=== PATIENT | female | born 1975 ===

== ENCOUNTER 2017-05-24 12:34 | Emergency (ER) | payer OTHER ==
[2017-05-24 12:50] VITALS: TEMP 98.2
[2017-05-24] MEDS ORDERED: Sodium Chloride 0.9% 1,000 ML IV ONE (14:11)
--- NOTE | 2017-05-24 14:44 | C.PDOC ---
History Of Present Illness 42 y/o female presents to ED with complaints of epigastric abdominal pain and pain to right leg for 1 week. Patient reports loose non-bloody stools for 3 days. Denies vomiting, fever, numbness, injury to leg or weakness. Time Seen by Provider: 05/24/17 14:08 Chief Complaint (Nursing): Abdominal Pain History Per: Patient History/Exam Limitations: no limitations Onset/Duration Of Symptoms: Days Current Symptoms Are (Timing): Still Present Location Of Pain/Discomfort: Epigastric Past Medical History Reviewed: Historical Data, Nursing Documentation, Vital Signs Vital Signs: Last Vital Signs Temp 98.2 F 05/24/17 12:47 Pulse 78 05/24/17 16:42 Resp 20 05/24/17 16:42 BP 130/72 05/24/17 16:42 Pulse Ox 98 05/24/17 16:42 - Medical History PMH: No Chronic Diseases Surgical History: Cholecystectomy Family History: States: No Known Family Hx - Social History Hx Alcohol Use: No Hx Substance Use: No - Immunization History Hx Tetanus Toxoid Vaccination: No Hx Influenza Vaccination: Yes Hx Pneumococcal Vaccination: No Review Of Systems Constitutional: Negative for: Fever, Chills Gastrointestinal: Positive for: Abdominal Pain. Negative for: Nausea, Vomiting Musculoskeletal: Positive for: Leg Pain Skin: Negative for: Rash Neurological: Negative for: Weakness, Numbness Physical Exam - Physical Exam Appears: Well, Non-toxic, No Acute Distress Skin: Warm, Dry, No Rash Head: Atraumatic, Normacephalic Eye(s): bilateral: Normal Inspection, EOMI Nose: Normal Oral Mucosa: Moist Neck: Normal ROM, Supple Chest: Symmetrical Cardiovascular: Rhythm Regular, No Murmur Respiratory: Normal Breath Sounds, No Rales, No Rhonchi, No Wheezing Gastrointestinal/Abdominal: Bowel Sounds (active), Soft, Tenderness (Epigastric mildly tender with deep palpation), No Mass, No Distention, No Guarding, No Rebound, No Ascites Back: Normal Inspection, No CVA Tenderness Extremity: Right: Other (mild tenderness to right thigh, no erythema, swelling or masses), Bilateral: Atraumatic, Normal Color And Temperature, Normal ROM Neurological/Psych: Oriented x3, Normal Speech ED Course And Treatment - Laboratory Results Result Diagrams: 05/24/17 14:45 05/24/17 14:45 O2 Sat by Pulse Oximetry: 97 (RA) Pulse Ox Interpretation: Normal Medical Decision Making Medical Decision Making: Impression: abdominal pain, epigastric Plan: Blood work, UA ordered. Pepcid and Toradol administered Progress: All labs reviewed. Potassium low, oral dose given Patient reevaluated and was seated comfortably in ED chair. She reports feeling better. Patient has no fever and vital signs are stable. Abdomen remains soft without tenderness or guarding. She is ambulatory without signs of discomfort. No signs of injury to leg or clinical indication for xray. Patient feels comfortable going home and will be discharged. Patient given follow up instructions. Instructed to return to ER if symptoms worsen or new symptoms arise. Disposition Counseled Patient/Family Regarding: Diagnosis, Need For Followup, Rx Given - Disposition Referrals: [facility] [Outside] [facility] [Outside] Disposition: HOME/ ROUTINE Disposition Time: 16:26 Condition: STABLE Additional Instructions: Elizabeth un seguimiento con phillips mdico primario o clnica en 2-5 castellanos para clinton evaluacin adicional. [place] los medicamentos segn lo recetado. Regrese al departamento de emergencia en cualquier momento si los sntomas persisten o empeoran. Follow up with your primary medical doctor or clinic in 2-5 days for further evaluation. Take medications as prescribed. Return to the emergency department at any time if symptoms persist or worsen. Prescriptions: Pantoprazole Sodium [Protonix] 20 mg PO DAILY #20 ect Instructions: Diarrhea in Adolescents and Adults, High Potassium Diet Forms: [employer] (Citizen Of [place]) Print Language: NEPALI - POA Present On Arrival: None - Clinical Impression Clinical Impression: Hypokalemia, Diarrhea - PA / EARTH SCIENCE PROFESSOR / Resident Statement MD/DO has reviewed & agrees with the documentation as recorded. - Scribe Statement The provider has reviewed the documentation as recorded by the Harmeet Alston All medical record entries made by the Harmeet were at my direction and personally dictated by me. I have reviewed the chart and agree that the record accurately reflects my personal performance of the history, physical exam, medical decision making, and the department course for this patient. I have also personally directed, reviewed, and agree with the discharge instructions and disposition.
[2017-05-24 14:52] LABS: EOS # 0.1 K/uL (0.0-0.7); HEMOGLOBIN 14.4 g/dL (11.0-16.0); MONO # 0.5 K/uL (0.0-0.8)
[2017-05-24 14:56] LABS: BASO % 0.6 % (0.0-2.0); LYMPH # 1.5 K/uL (1.0-4.3); LYMPH % 23.2 % (20.0-40.0); MEAN CORPUSCULAR HEMOGLOBIN 30.7 pg (27.0-31.0); MEAN CORPUSCULAR HGB CONC 34.1 g/dL (33.0-37.0); MEAN PLATELET VOLUME 11.5 fL (7.2-11.7); MONO % 8.2 % (0.0-10.0); NEUT # 4.2 K/uL (1.8-7.0); RBC 4.7 Mil/uL (3.80-5.20); RED CELL DISTRIBUTION WIDTH 14.6 % (11.5-14.5); WHITE BLOOD COUNT 6.3 K/uL (4.8-10.8)
[2017-05-24] MEDS ORDERED: Sodium Chloride 0.9% 1,000 ML ONE (14:57)
[2017-05-24 15:04] LABS: ALB/GLOB RATIO 1.1 (1.0-2.1); ALT/SGPT 27 U/L (9-52); AST/SGOT 30 U/L (14-36); BLOOD UREA NITROGEN 16 mg/dL (7-17); CALCIUM 9.5 mg/dl (8.6-10.4); GFR AFRICAN-AMERICAN > 60; GFR NON-AFRICAN AMERICAN > 60; LIPASE 184 U/L (23-300)
[2017-05-24] MEDS ORDERED: Potassium Chloride 20 mEq ER Tab PO STA (15:22)
[2017-05-24 15:59] LABS: HCG,QUALITATIVE URINE NEGATIVE (NEGATIVE)
[2017-05-24 16:04] LABS: SQUAMOUS EPITHIAL 4 /hpf (0-5); URINE BACTERIA RARE (<OCC); URINE BILIRUBIN NEGATIVE (NEGATIVE); URINE BLOOD 3+ (NEGATIVE); URINE CALCIUM OXALATE CRYSTALS MANY /hpf (<OCC); URINE CLARITY Hazy (Clear); URINE COLOR Amber (YELLOW); URINE GLUCOSE (UA) NORMAL (Normal); URINE LEUKOCYTE ESTERASE NEG Leu/uL (Negative); URINE NITRATE NEGATIVE (NEGATIVE); URINE PROTEIN 1+ mg/dL (NEGATIVE); URINE UROBILINOGEN NORMAL mg/dL (0.2-1.0)
[2017-05-24] MEDS ORDERED: Potassium Chloride 20 mEq ER Tab PO ONE (16:13)
[2017-05-24 16:43] VITALS: BP 130/72; PULSE 78; RESP 20
[2017-05-24 17:06] VITALS: O2SAT 97
== END 2017-05-24 17:09 | disposition home or self-care (01) ==
LOC: C.ER 12:34
DX: E87.6 Hypokalemia (principal); R19.7 Diarrhea, unspecified
CPT/HCPCS: 80053; 81001; 83690; 84703; 85025; 96374; 96375; 99284; J1885; J7040

== ENCOUNTER 2017-12-31 11:34 | Inpatient (IN) | payer OTHER ==
[2017-12-31] MEDS ORDERED: Sodium Chloride 0.9% 1,000 ML IV ONE ×2 (12:32→16:09)
--- NOTE | 2017-12-31 12:34 | C.PDOC ---
History Of Present Illness 42 y/o female, with no significant PMHx, presents to ED for evaluation of gradual development of epigastric abdominal pain since last night. Pt reports multiple episodes of non-bloody, non-bilious vomiting. Denies recent travel, diarrhea, constipation, back pain, urinary symptoms, cough, shortness of breath, chest pain, fever, or chills. Time Seen by Provider: 12/31/17 12:10 Chief Complaint (Nursing): Abdominal Pain History Per: Patient History/Exam Limitations: no limitations Onset/Duration Of Symptoms: Days Current Symptoms Are (Timing): Still Present Location Of Pain/Discomfort: Epigastric Radiation Of Pain To:: None Quality Of Discomfort: "Pain" Associated Symptoms: Nausea, Vomiting. denies: Diarrhea, Loss Of Appetite, Back Pain, Chest Pain, Constipation, Urinary Symptoms Exacerbating Factors: None Alleviating Factors: None Recent travel outside of the [place]: No Additional History Per: Patient Abnormal Vaginal Bleeding: No Past Medical History Reviewed: Historical Data, Nursing Documentation, Vital Signs Vital Signs: Last Vital Signs Temp 98.2 F 12/31/17 11:44 Pulse 62 12/31/17 11:44 Resp 16 12/31/17 11:44 BP 124/81 12/31/17 11:44 Pulse Ox 98 12/31/17 11:44 Surgical History: Cholecystectomy Family History: States: Unknown Family Hx - Social History Hx Alcohol Use: No Hx Substance Use: No - Immunization History Hx Tetanus Toxoid Vaccination: No Hx Influenza Vaccination: Yes Hx Pneumococcal Vaccination: No Review Of Systems Except As Marked, All Systems Reviewed And Found Negative. Constitutional: Negative for: Fever, Chills Cardiovascular: Negative for: Chest Pain, Palpitations Respiratory: Negative for: Cough, Shortness of Breath Gastrointestinal: Positive for: Nausea, Vomiting, Abdominal Pain. Negative for: Diarrhea, Constipation, Hematemesis Genitourinary: Negative for: Dysuria, Frequency, Hematuria Musculoskeletal: Negative for: Neck Pain, Back Pain Neurological: Negative for: Headache, Dizziness Physical Exam - Physical Exam Appears: Well, Non-toxic, Other (in pain) Skin: Normal Color, Warm, Dry Eye(s): bilateral: PERRL Nose: No Flaring, No Discharge Oral Mucosa: Moist, No Drooling Throat: No Erythema, No Drooling Neck: Trachea Midline, Supple Cardiovascular: Rhythm Regular Respiratory: No Decreased Breath Sounds, No Accessory Muscle Use, No Stridor, No Wheezing Gastrointestinal/Abdominal: Soft, Tenderness (mod epigastric and mild RLQ tenderness), No Distention, No Guarding Back: No CVA Tenderness Extremity: Normal ROM, No Pedal Edema, No Deformity, No Swelling Neurological/Psych: Oriented x3, Normal Speech ED Course And Treatment - Laboratory Results Result Diagrams: 12/31/17 13:34 12/31/17 13:34 Lab Interpretation: Abnormal O2 Sat by Pulse Oximetry: 98 Pulse Ox Interpretation: Normal - CT Scan/US CT abd/pelvis Other Rad Studies (CT/US): Radiology Report Reviewed CT/US Interpretation: IMPRESSION: Findings consistent with mild early acute appendicitis. Suspect left ovarian cyst. Mild fatty hepatic infiltration. Cholecystectomy. Progress Note: Blood work, Urinalysis ordered and reviewed. Pt was given Pepcid, Zofran, Protonix, and IV fluids. Pt remained stable during the ED evaluation. After CT A/P results discussed with , rad, acute appendincitis identified. Blood Cx, Zosyn ordered. residential program coordinator consult called. case discussed with Surgery on-call and admission arranged. Disposition - Disposition Disposition: HOSPITALIZED Disposition Time: 14:46 Condition: STABLE - Clinical Impression Clinical Impression: Acute appendicitis - PA / STEEL SPAR OPERATOR / Resident Statement MD/DO has reviewed & agrees with the documentation as recorded. - Scribe Statement The provider has reviewed the documentation as recorded by the Scribe KP All medical record entries made by the Scribe were at my direction and personally dictated by me. I have reviewed the chart and agree that the record accurately reflects my personal performance of the history, physical exam, medical decision making, and the department course for this patient. I have also personally directed, reviewed, and agree with the discharge instructions and disposition.
[2017-12-31] MEDS ORDERED: Sodium Chloride 0.9% 1,000 ML ONE ×2 (13:09→16:37)
[2017-12-31 13:45] LABS: BASO % 0.2 % (0.0-2.0); LYMPH # 0.7 K/uL (1.0-4.3); LYMPH % 4.5 % (20.0-40.0); MEAN CELL VOLUME 90.7 fL (81.0-99.0); MEAN CORPUSCULAR HEMOGLOBIN 30.1 pg (27.0-31.0); MEAN CORPUSCULAR HGB CONC 33.2 g/dL (33.0-37.0); MEAN PLATELET VOLUME 11.8 fL (7.2-11.7); MONO # 0.2 K/uL (0.0-0.8); MONO % 1.4 % (0.0-10.0); NEUT # 14.8 K/uL (1.8-7.0); NEUT % 93.9 % (50.0-75.0); PLATELET COUNT 145 K/uL (130-400); RBC 4.32 Mil/uL (3.80-5.20); WHITE BLOOD COUNT 15.7 K/uL (4.8-10.8)
[2017-12-31 13:51] LABS: HCG,QUALITATIVE URINE NEGATIVE (NEGATIVE)
[2017-12-31 14:01] LABS: ALB/GLOB RATIO 1.3 (1.0-2.1); ALBUMIN 4.3 g/dL (3.5-5.0); ALT/SGPT 24 U/L (9-52); AST/SGOT 18 U/L (14-36); BLOOD UREA NITROGEN 12 mg/dL (7-17); GFR NON-AFRICAN AMERICAN > 60; LIPASE 81 U/L (23-300)
[2017-12-31 14:02] LABS: SQUAMOUS EPITHIAL 11 /hpf (0-5); URINE AMORPHOUS SEDIMENT FEW /ul (<OCC); URINE BACTERIA OCC (<OCC); URINE BILIRUBIN NEGATIVE (NEGATIVE); URINE BLOOD NEGATIVE (NEGATIVE); URINE CLARITY Hazy (Clear); URINE COLOR Yellow (YELLOW); URINE GLUCOSE (UA) NORMAL (Normal); URINE LEUKOCYTE ESTERASE NEG Leu/uL (Negative); URINE PROTEIN NEGATIVE (NEGATIVE); URINE UROBILINOGEN NORMAL mg/dL (0.2-1.0)
[2017-12-31 14:11] LABS: BASOPHIL 1 % (0-2); LYMPHOCYTE 5 % (20-40); MONOCYTE 1 % (0-10); NEUTROPHIL 93 % (50-75); PLATELET ESTIMATE NORMAL (NORMAL); TOTAL CELLS COUNTED 100
[2017-12-31] MEDS ORDERED: Iodixanol 320 MG/ML 100 ML BOTTLE IV ONE (14:14)
--- NOTE | 2017-12-31 16:04 | CT ---
Date of service: 2017-12-31 14:25:20 PROCEDURE: CT abdomen pelvis HISTORY: Abdominal pain COMPARISON: None. TECHNIQUE: Contiguous axial images of the abdomen and pelvis performed following intravenous injection of approximately 100 cc Visipaque 320 contrast material.. Coronal and Sagittal reformats generated. Radiation dose: Total exam DLP = mGy-cm. This CT exam was performed using one or more of the following dose reduction techniques: Automated exposure control, adjustment of the mA and/or kV according to patient size, and/or use of iterative reconstruction technique. Total exam DLP = 366.39 mGy-cm. FINDINGS: LOWER THORAX: Heart size within range of normal. No significant pericardial effusion. Mild passive/dependent type atelectasis however lung bases are otherwise clear. LIVER: Liver exhibits relatively normal size. Mild diffuse fatty hepatic infiltration. No obvious hepatic mass collection or calcification.. There is dilatation of the common bile duct however no significant intrahepatic biliary ductal dilatation. GALLBLADDER AND BILE DUCTS: Gallbladder has been resected with mild dilatation of the common bile duct. PANCREAS: Unremarkable. No mass. No ductal dilatation. SPLEEN: Unremarkable. No splenomegaly. ADRENALS: Unremarkable. KIDNEYS AND URETERS: Unremarkable. No stone or hydronephrosis. BLADDER: Urinary bladder is incompletely distended which may in part account for thick-walled appearance. Correlation with urinalysis recommended to exclude cystitis/UTI.. REPRODUCTIVE: Questionable left ovarian cyst measuring approximately 2.6 x 2.0 cm. APPENDIX: What is felt to represent the appendix is dilated measuring approximately 11.4 mm in greatest diameter. There are some vague infiltration changes seen in the adjacent mesentery about the distal aspect of the appendix. Findings probably represent early acute appendicitis. Clinical correlation recommended. Questionable small appendicoliths within the appendiceal ostia... BOWEL: Evaluation of the bowel is limited due to the lack of oral contrast material. The stomach is partially distended with air. Visualized loops of small bowel exhibit relatively normal contour and caliber. No evidence of acute mechanical small bowel obstruction. PERITONEUM: Unremarkable. No fluid collection. No free air. LYMPH NODES: Unremarkable. No enlarged lymph nodes. VASCULATURE: No evidence of abdominal aortic or iliac artery aneurysms. BONES: No fracture or destructive lesion. OTHER FINDINGS: None. IMPRESSION: Findings consistent with mild early acute appendicitis. Suspect left ovarian cyst. Mild fatty hepatic infiltration. Cholecystectomy. Findings discussed with the emergency room PA Tversky at approximately 4 p.m. with written down and read back verification. See above discussion for additional details and findings.
[2017-12-31] MEDS ORDERED: Piperacillin/Tazobact 3.375 gm 100 ML IV STA (16:06)
[2017-12-31] MEDS ORDERED: Piperacillin/Tazobact 3.375 gm 100 ML IVPB ONE (16:37)
[2017-12-31] MEDS ORDERED: Potassium Chloride 20 mEq/15 ml LIQ UD PO ONE ×2 (17:34→19:38)
--- NOTE | 2017-12-31 17:42 | CP.PCM.HP ---
Addendum entered and electronically signed by Brionna Lang DO 12/31/17 20:42: patient re-evaluated, hypotensive in 90s/50s- will give 500cc bolus and increase IVF to 125. Pt reports pain was cramping, now resolved. Continues to state that she has not had abdominal pain since she had her GB out, had cholecystectomy in 2009 here, cannot remember surgeon. Pt booked/consented for lap appendectomy tomorrow at 8am. Consent obtained via Neronote tailer out Norah Gann #[id number]- in chart. Strict I/O's Q8H DW Dr. Ron Lang, PGY-2 Original Note: <Brionna Lang - Last Filed: 12/31/17 19:11> History of Present Illness - History of Present Illness History of Present Illness: General surgery H & P for Dr. Madeleine Lang, PGY-2 Pt S & E at bedside at 1710, Neronote intrepretor used for [place], Vikas, #[id number] 42F w/PMH sig for hx of constipation admitted for RUQ abdominal pain x 1 day. Pt reports onset of epigastric pain this AM. Pain was constant, non radiating, moderate. Alleviated by pain medications in ED. No aggravating factors identified. Pt reports never having similar episodes (EMR review indicates previous ED evaluation for epigastric pain, diarrhea 05/2017). Admits to nausea, >10 episodes of emesis (bilious, nb), chills. Denies fevers, changes in urination, hematochezia, hematemesis, hematuria, CP, SOB, dizziness, MEADOWS, back pain, LE numbness/tingling, sore throat, other complaints. Never had EGD or colonoscopy. In ED- afebrile, leukocytosis of 15.7. Hypokalemia 3.4. CT abdomen done with findings of suspected dilated appendix 11.4, vague changes in adjacent mesentery, maybe early acute appendicitis, questionable small appendicoliths. PMH: hx constipation, occasional MEADOWS PSH: Laparoscopic cholecystitis All: NKDA SH: Denies recent travel, ETOH, tobacco, or illicit drug use FH: Mother had heart disease Present on Admission - Present on Admission Any Indicators Present on Admission: No History of DVT/PE: No History of Uncontrolled Diabetes: No Urinary Catheter: No Decubitus Ulcer Present: No Review of Systems - Review of Systems All systems: reviewed and no additional remarkable complaints except - Constitutional Constitutional: Chills, Headache (occasional). absent: Fever, Weakness - EENT Eyes: absent: Change in Vision Ears: absent: Dizziness Nose/Mouth/Throat: absent: Sore Throat - Cardiovascular Cardiovascular: absent: Chest Pain - Respiratory Respiratory: absent: Cough - Gastrointestinal Gastrointestinal: Abdominal Pain, Constipation (hx of), Nausea, Vomiting. absent: Bloating, Diarrhea, Hematemesis, Hematochezia, Melena - Genitourinary Genitourinary: absent: Change in Urinary Stream, Dysuria, Hematuria - Musculoskeletal Musculoskeletal: absent: Back Pain, Numbness, Tingling - Integumentary Integumentary: absent: Rash - Neurological Neurological: absent: Numbness, Tingling - Psychiatric Psychiatric: Change in Appetite (decreased) Past Patient History - Infectious Disease Hx of Infectious Diseases: None - Past Social History Smoking Status: Never Smoked - PSYCHIATRIC Hx Substance Use: No - SURGICAL HISTORY Hx Cholecystectomy: Yes - ANESTHESIA Hx Anesthesia: Yes Hx Anesthesia Reactions: No Hx Malignant Hyperthermia: No Meds Allergies/Adverse Reactions: Allergies Allergy/AdvReac Type Severity Reaction Status Date / Time No Known Allergies Allergy Verified 12/31/17 11:46 Physical Exam - Constitutional Appears: Non-toxic, No Acute Distress - Head Exam Head Exam: ATRAUMATIC, NORMAL INSPECTION, NORMOCEPHALIC - Eye Exam Eye Exam: EOMI, Normal appearance - ENT Exam ENT Exam: Mucous Membranes Moist, Normal Exam - Neck Exam Neck exam: Positive for: Full Rom, Normal Inspection - Respiratory Exam Respiratory Exam: Clear to Auscultation Bilateral, NORMAL BREATHING PATTERN. absent: Rales, Rhonchi, Wheezes, Respiratory Distress - Cardiovascular Exam Cardiovascular Exam: REGULAR RHYTHM, +S1, +S2 - GI/Abdominal Exam GI & Abdominal Exam: Hyperactive Bowel Sounds, Soft. absent: Distended, Firm, Guarding, Hernia, Rebound, Rigid, Tenderness Additional comments: well healed umbilical scar - Extremities Exam Extremities exam: Positive for: normal inspection. Negative for: pedal edema - Back Exam Back exam: NORMAL INSPECTION - Neurological Exam Neurological exam: Alert, CN II-XII Intact, Oriented x3 - Psychiatric Exam Psychiatric exam: Normal Affect, Normal Mood - Skin Skin Exam: Dry, Intact, Normal Color, Warm Results - Vital Signs Recent Vital Signs: Last Vital Signs Temp 98 F 12/31/17 14:53 Pulse 66 12/31/17 14:53 Resp 17 12/31/17 14:53 BP 122/73 12/31/17 14:53 Pulse Ox 98 12/31/17 17:23 - Labs Result Diagrams: 12/31/17 13:34 12/31/17 13:34 Labs: Laboratory Results - last 24 hr 12/31/17 12/31/17 12/31/17 13:34 13:34 13:34 WBC 15.7 H D RBC 4.32 Hgb 13.0 Hct 39.1 MCV 90.7 MCH 30.1 MCHC 33.2 RDW 14.0 Plt Count 145 MPV 11.8 H Neut % (Auto) 93.9 H Lymph % (Auto) 4.5 L [place] % (Auto) 1.4 Eos % (Auto) 0.0 Baso % (Auto) 0.2 Neut # (Auto) 14.8 H Lymph # (Auto) 0.7 L [place] # (Auto) 0.2 Eos # (Auto) 0.0 Baso # (Auto) 0.0 Neutrophils % (Manual) 93 H Lymphocytes % (Manual) 5 L Monocytes % (Manual) 1 Basophils % (Manual) 1 Platelet Estimate Normal RBC Morphology Normal Sodium 142 Potassium 3.4 L Chloride 104 Carbon Dioxide 25 Anion Gap 16 BUN 12 Creatinine 0.4 L Est GFR ( Amer) > 60 Est GFR (Non-Af Amer) > 60 Random Glucose 125 H Calcium 9.0 Total Bilirubin 0.9 AST 18 ALT 24 Alkaline Phosphatase 82 Total Protein 7.6 Albumin 4.3 Globulin 3.3 Albumin/Globulin Ratio 1.3 Lipase 81 Urine Color Yellow Urine Clarity Hazy Urine pH 8.0 Ur Specific [place] 1.021 Urine Protein Negative Urine Glucose (UA) Normal Urine Ketones 2+ H Urine Blood Negative Urine Nitrate Negative Urine Bilirubin Negative Urine Urobilinogen Normal Ur Leukocyte Esterase Neg Urine WBC (Auto) 1 Urine RBC (Auto) < 1 Ur Squamous Epith Cells 11 H Amorphous Sediment Few H Urine Bacteria Occ H Urine HCG, Qual Negative Assessment & Plan - Assessment and Plan (Free Text) Assessment: 42F w/epigastric abdominal pain x 1 day with multiple bouts of emesis Plan: Admit to med surg VS Q4H IVF NPO except meds Replace K ABx pain control Activity as tolerated OOBTC Ambulate GI/DVT ppx DW Dr. Ron Lang, PGY-2 - Date & Time Date: 12/31/17 Time: 17:47 Decision To Admit - Pt Status Changed To: Hospital Disposition Of: Observation - . Bed Request Type: Regular Admitting Physician: Kita Velasquez <Kita Velasquez - Last Filed: 01/01/18 15:57> Results - Vital Signs Recent Vital Signs: Last Vital Signs Temp 98.3 F 01/01/18 11:22 Pulse 60 01/01/18 11:22 Resp 20 01/01/18 11:22 BP 85/56 L 01/01/18 11:22 Pulse Ox 98 01/01/18 11:22 - Labs Result Diagrams: 01/01/18 05:02 01/01/18 05:02 Labs: Laboratory Results - last 24 hr 01/01/18 01/01/18 01/01/18 05:02 05:02 05:02 WBC 12.9 H RBC 3.87 Hgb 11.5 Hct 34.8 MCV 89.7 MCH 29.7 MCHC 33.1 RDW 14.0 Plt Count 129 L MPV 11.7 Neut % (Auto) 81.9 H Lymph % (Auto) 13.0 L [place] % (Auto) 4.4 Eos % (Auto) 0.4 Baso % (Auto) 0.3 Neut # (Auto) 10.5 H Lymph # (Auto) 1.7 [place] # (Auto) 0.6 Eos # (Auto) 0.1 Baso # (Auto) 0.0 PT 14.0 H INR 1.3 APTT 38 H Sodium 138 Potassium 3.6 Chloride 108 H Carbon Dioxide 22 Anion Gap 11 BUN 6 L Creatinine 0.5 L Est GFR ( Amer) > 60 Est GFR (Non-Af Amer) > 60 Random Glucose 103 Calcium 8.2 L Total Bilirubin 1.9 H AST 14 D ALT 31 Alkaline Phosphatase 53 Total Protein 5.5 L Albumin 2.9 L D Globulin 2.6 Albumin/Globulin Ratio 1.1 Assessment & Plan - Assessment and Plan (Free Text) Plan: I personally saw and examined the patient with the resident staff and agree with the above assessment and plan. I personally reviewed the available diagnostic images and imaging reports. [address] confirmed appendicitis. Focal RLQ TTP. Elevated WBC. To OR for laparoscopic appendectomy. Risks and benefits discussed. Consent signed. - Date & Time Date: 01/01/18 Time: 08:00
[2017-12-31] MEDS ORDERED: Potassium Chloride 20 mEq/15 ml LIQ UD ONE (18:01)
[2017-12-31] MEDS ORDERED: Lactated Ringer's 1,000 ML ONE (18:01)
[2017-12-31] MEDS: Lactated Ringer's 1,000 ML IV SCH (18:16)
[2017-12-31] MEDS ORDERED: Sodium Chloride 0.9% 500 ML IV ONE (20:38)
[2017-12-31] MEDS: Piperacill/Tazo 3.375gm in Dex 3.375 GM/50 ML BAG IVPB SCH (22:05)
[2018-01-01] MEDS: Piperacill/Tazo 3.375gm in Dex 3.375 GM/50 ML BAG IVPB SCH ×4 (03:33→16:12)
[2018-01-01] MEDS: Lactated Ringer's 1,000 ML IV SCH ×2 (03:34→13:37)
[2018-01-01 05:04] LABS: BASO % 0.3 % (0.0-2.0); EOS # 0.1 K/uL (0.0-0.7); EOS % 0.4 % (0.0-4.0); HEMOGLOBIN 11.5 g/dL (11.0-16.0); LYMPH # 1.7 K/uL (1.0-4.3); MEAN CELL VOLUME 89.7 fL (81.0-99.0); MEAN CORPUSCULAR HEMOGLOBIN 29.7 pg (27.0-31.0); MEAN CORPUSCULAR HGB CONC 33.1 g/dL (33.0-37.0); MEAN PLATELET VOLUME 11.7 fL (7.2-11.7); MONO # 0.6 K/uL (0.0-0.8); MONO % 4.4 % (0.0-10.0); NEUT # 10.5 K/uL (1.8-7.0); NEUT % 81.9 % (50.0-75.0); RBC 3.87 Mil/uL (3.80-5.20); WHITE BLOOD COUNT 12.9 K/uL (4.8-10.8)
[2018-01-01 05:13] LABS: INR 1.3
[2018-01-01 05:46] LABS: ALB/GLOB RATIO 1.1 (1.0-2.1); ALBUMIN 2.9 g/dL (3.5-5.0); ALT/SGPT 31 U/L (9-52); AST/SGOT 14 U/L (14-36); BLOOD UREA NITROGEN 6 mg/dL (7-17); CALCIUM 8.2 mg/dl (8.6-10.4); GFR NON-AFRICAN AMERICAN > 60
[2018-01-01] MEDS ORDERED: Lidocaine Hydrochloride 15 ML INJ ONE (07:55)
[2018-01-01] MEDS ORDERED: Bupivacaine 0.25% 20 ML INJ IJ ONE (07:56)
[2018-01-01] MEDS ORDERED: Midazolam 2 MG/2 ML VIAL ONE (08:30)
[2018-01-01] MEDS ORDERED: Propofol 10 mg/ml Inj (20 ML) ONE (08:30)
[2018-01-01] MEDS ORDERED: Piperacillin/Tazobact 3.375 gm 100 ML IVPB ONE (08:34)
[2018-01-01] MEDS ORDERED: Succinylcholine Chloride 20 mg/ml Syr (5 ml) IV ONE (09:03)
[2018-01-01] MEDS ORDERED: Rocuronium 10 mg/ml (5 ml) ONE (09:03)
[2018-01-01] MEDS ORDERED: Neostigmine Methylsulfate 3mg/3ml Syringe IV ONE (09:03)
[2018-01-01] MEDS ORDERED: HYDROmorphone 0.5 mg/0.5 ml ISec IVP PRN (09:46)
[2018-01-01] MEDS ORDERED: Oxycodone/Acetaminophen 5/325 mg Tab PO PRN (09:48)
--- NOTE | 2018-01-01 09:48 | PCM.SURG1 ---
Surgeon's Initial Post Op Note - Surgeon's Notes Surgeon: Dr. Velasquez Unit Control Clerk: Dr. Arambula PGY3 Type of Anesthesia: General Endo Pre-Operative Diagnosis: acute appendicitis Operative Findings: acute appendicitis Post-Operative Diagnosis: same Operation Performed: laparoscopic appendectomy Specimen/Specimens Removed: appendix Estimated Blood Loss: EBL {In ML}: 5 Blood Products Given: N/A Drains Used: No Drains Post-Op Condition: Good Date of Surgery/Procedure: 01/01/18 Time of Surgery/Procedure: 08:26
[2018-01-01 11:23] VITALS: RESP 20
[2018-01-01] MEDS ORDERED: Lactated Ringer's 1,000 ML IV ONE (11:48)
--- NOTE | 2018-01-01 12:43 | RAD ---
Date of service: 12/31/2017 HISTORY: Preop evaluation. COMPARISON: No prior. FINDINGS: LUNGS: No active pulmonary disease. PLEURA: No significant pleural effusion identified, no pneumothorax apparent. CARDIOVASCULAR: Normal. OSSEOUS STRUCTURES: No significant abnormalities. VISUALIZED UPPER ABDOMEN: Normal. OTHER FINDINGS: None. IMPRESSION: No active disease.
--- NOTE | 2018-01-01 16:00 | PCM.OP ---
Operative Report - Operative Report Date of Surgery/Procedure: 01/01/18 Time of Surgery/Procedure: 08:30 Surgeon: Kita Velasquez MD Separator Inserter: Dwain Arambula DO (PGY3 resident) Anesthesia/Sedation: General endotracheal; 1% lidocaine + 0.25% Marcaine mix local anesthesia Pre-Operative Diagnosis: Acute appendicitis. Obesity. BMI 28 Post-Operative Diagnosis: Acute appendicitis. Obesity. BMI 28 Indication for Surgery: This is a 42 year old female who presented to the emergency department earlier with 24 hours of abdominal pain, nausea and several episodes of emesis, CT scan findings consistent with acute appendicitis with appendicolith, elevated WBC count. Details of HPI in clinical chart. Risks and benefits of laparoscopic possible open, appendectomy discussed as documented in clinical chart, including but not limited to, bleeding, infection, wound infection, abscess, and need for open surgery. All questions answered and informed consent signed prior to operation. Operative Findings: Dilated, inflamed appendix without evidence of perforation. Moderate fluid in pelvis and right paracolic gutter; Appendix removed intact; Mesoappendiceal and cecal staple lines in tact without leak or bleeding at end of case. Procedure/Operation Description: PROCEDURE PERFORMED: Laparoscopic Appe ndectomy. Omental buttress of cecal staple line. DETAILS OF PROCEDURE: The patient was given a preoperative dose of Zosyn 20 minutes prior to incision. SCD boots were placed for DVT prophylaxis. Secure straps placed above the knees. Left arm tucked at patients side in neutral position. Right arm placed out on padded armboard. An orogastric tube placed in order to empty the stomach after the induction of general anesthesia. Upper body warmer placed. No chaudhari was used as patient had voided immediately prior to breing brought to OR. . The abdomen was prepped and draped in sterile fashion. Timeout was perforemd prior to incison. All skin incisions were made using an 11 blade scalpel after being pre-anesthetized with local anesthesia. Abdominal entry was gained using an 8mm optically viewing trocar with A 5mm 0-degree laparoscope placed in pal[place] point in the left upper quadrant. All layers of the abdominal wall were seen and peritoneal entry directly visualized. The abdomen was then insufflated with C02 pneumoperitoneum to 15mmhg. 5mm 0-degree laparoscope was then inserted and the abdomen was generally inspected. There were no signs of injury from initial entry and there was not found to be any additional signs of pathology. Additionally working ports then placed under direct vision, a 12mm trocar in the supraumbilical midline using the same skin incision as her previous lap cholecystectomy scar, and one 5mm port in the suprapubic region. We began by sweeping the small intestine out of the pelvis and easily visualized the cecum tracing the taenia down to the appendix and terminal ileum with identifcation of the fat/fold of treves. Dilated, mildly inflamed appendix without perforation noted. A mesenteric window was created bluntly in between base of appendix at cecum and mesoappendix, and bipolar energy device was used to ligate and divide appendiceal pedicle. Next a 45 mm blue load linear staple was used to divide the appendix at its base, being sure not to incorporate cecum. The specimen was placed in an Endocatch bag and removed from the 12mm trocar. The trocar reinserted and we next turned our attention to inspecting the staple line. The staple lines were carefully inspected and appeared hemostatic. Omentum was then draped over the suture line and instruments and ports removed under direct vision. The abdomen was then desufflated. 0-vycrl suture in a figure of eight fashion x1 was used to close the umilical fasia. The skin was closed with 4-0 monocryl and dermabond. All sponge, needle and instrument counts were correct. The patient was extubated in the operating room, and taken to the recovery room in stable condition. I was present for the entirety of the operation. Estimated Blood Loss: 15mL Complications: none Specimen: appendix Discharge & Condition: above.
[2018-01-01 17:42] VITALS: BP 94/63; PULSE 57; TEMP 98.7; O2SAT 97
[2018-01-02] MEDS ORDERED: Influenza Vaccine 60 MCG/0.5 ML SYR (3 yr & up) IM ONE (10:00)
--- NOTE | 2018-01-02 21:59 | CARD ---
APPROVED REPORT Date of service: 12/31/2017 EKG Measurement Heart [id number] <Conclusion> Normal sinus rhythm Normal ECG
[2018-01-03] MEDS ORDERED: Pneumococcal 23-Valent Vaccine IM ONE (10:00)
== END 2018-01-01 18:30 | disposition home or self-care (01) | DRG 883 ==
LOC: C.ER 11:34 → C.9E 14:30 → C.3T 17:47
PROVIDERS: ADMIT Surgery; ATTEND Surgery
PROC: 0DTJ4ZZ Resection of Appendix, Percutaneous Endoscopic Approach (ICD-10-PCS; principal; 2018-01-01 08:00)
DX: K35.80 Unspecified acute appendicitis (principal); E87.6 Hypokalemia; Z90.49 Acquired absence of other specified parts of digestive tract; Z82.49 Family history of ischemic heart disease and other diseases of the circulatory system